=== PATIENT | female | born 1955 | race Two or more races ===

== ENCOUNTER 2019-06-13 06:49 | Emergency (ER) | payer OTHER ==
[~2019-06-13] VITALS: Ht 165.1 cm; Wt 53.5 kg
== END 2019-06-13 13:26 | disposition home or self-care (01) ==
LOC: ER 06:49
DX: R10.84 Generalized abdominal pain (principal)

== ENCOUNTER 2020-01-23 10:00 | Outpatient (CLI) | payer OTHER | END 2020-01-23 10:07 | disposition home or self-care (01) | LOC: LAB 10:00 | DX: E11.9 Type 2 diabetes mellitus without complications (principal); E03.8 Other specified hypothyroidism; E78.2 Mixed hyperlipidemia; I10 Essential (primary) hypertension; Z12.11 Encounter for screening for malignant neoplasm of colon; D64.89 Other specified anemias ==

== ENCOUNTER 2020-01-24 07:40 | Outpatient (CLI) | payer OTHER | END 2020-01-24 07:51 | disposition home or self-care (01) | LOC: TOM 07:40 | DX: R10.84 Generalized abdominal pain (principal) | CPT/HCPCS: 74177; Q9965 ==